=== PATIENT | female | born 1995 | race Two or more races ===

== ENCOUNTER 2017-12-17 15:59 | Outpatient (CLI) | payer BC ==
--- NOTE | 2017-12-18 09:32 | XRAY Report ---
SACRUM AND COCCYX: 12/17/2017 CLINICAL INDICATION: Coccygeal pain. FINDINGS: AP, oblique, lateral views of the sacrum and coccyx demonstrate no evidence of fracture. The sacral ala are preserved. The coccygeal segments demonstrate normal alignment. IMPRESSION: NORMAL SACRUM AND COCCYX. TD: 12/18/2017 09:18
== END 2017-12-17 16:00 | disposition home or self-care (01) ==
LOC: DI.N 15:59
PROVIDERS: ATTEND Family Medicine
DX: M53.3 Sacrococcygeal disorders, not elsewhere classified (principal)
CPT/HCPCS: 72220

== ENCOUNTER 2022-09-10 09:27 | Outpatient (CLI) | payer OTHER ==
[2022-09-10 11:59] LABS: RHEUMATOID FACTOR NEGATIVE (Negative)
--- NOTE | 2022-09-10 15:14 | XRAY Report ---
PROCEDURE: Chest 2 View X-Ray INDICATIONS: UNSPECIFIED IRIDOCYCLITIS TECHNIQUE: 2 views of the chest were acquired. COMPARISON: None. FINDINGS: Surgical changes and devices: None. Lungs and pleura: No pleural effusions or pneumothorax. Lungs are clear. Mediastinum: Mediastinal contours are normal. Heart size is normal. Bones and chest wall: No suspicious bony abnormalities. Soft tissues appear unremarkable. IMPRESSION: Normal chest x-ray Reviewed by: Tristan Moreno MD on 09/10/2022 2:12 PM [facility] Approved by: Tristan Moreno MD on 09/10/2022 2:12 PM [place] Station ID: [id number]
[2022-09-11 07:10] LABS: RPR Non Reactive (Non Reactive)
[2022-09-11 21:07] LABS: ANTI-DNA (DS) AB QN 2 IU/mL (0-9); CENTROMERE B ANTIBODIES <0.2 AI (0.0-0.9); CHROMATIN ANTIBODIES <0.2 AI (0.0-0.9); JO-1 AB <0.2 AI (0.0-0.9); RIBOSOMAL P ANTIBODIES <0.2 AI (0.0-0.9); RNP ANTIBODIES 0.2 AI (0.0-0.9); SCLERODERMA-70 ANTIBODIES <0.2 AI (0.0-0.9); SJOGREN'S ANTI-SS-A <0.2 AI (0.0-0.9); SJOGREN'S ANTI-SS-B <0.2 AI (0.0-0.9); SMITH ANTIBODIES <0.2 AI (0.0-0.9); SMITH/RNP ANTIBODIES <0.2 AI (0.0-0.9)
== END 2022-09-10 09:28 | disposition home or self-care (01) ==
LOC: LAB 09:27
PROVIDERS: ATTEND Ophthalmology
DX: H20.9 Unspecified iridocyclitis (principal)
CPT/HCPCS: 81374; 81599; 83516; 85549; 86225; 86235; 86430; 86592

== ENCOUNTER 2023-02-22 13:18 | Outpatient (CLI) | payer OTHER ==
[~2023-02-22 13:18] MED LIST: GADOBUTROL 7.5 MMOL/7.5 ML VIAL ONE
[2023-02-22] MEDS ORDERED: GADOBUTROL 7.5 MMOL/7.5 ML VIAL IVP ONE (15:00)
--- NOTE | 2023-02-24 08:33 | MRI Report ---
PROCEDURE: BRAIN W/WO INDICATIONS: HEADACHE CONTRAST: GADAVIST 5.9 ML TECHNIQUE: Noncontrast axial T1 spin echo, axial T2 fast spin echo, sagittal and axial FLAIR, coronal T2 fast sp in echo, axial gradient echo, axial diffusion and ADC through the brain. After the administration of contrast, axial and coronal T1 spin echo with fat saturation through the brain. COMPARISON: None. FINDINGS: Image quality: Excellent. CSF spaces: Basal cisterns are patent. No extra-axial fluid collections. Ventricles are normal in size and shape. Brain: No midline shift. No intracranial bleeds or masses. No abnormal intracranial enhancement. There is cerebral volume loss for age. There is periventricular white matter chronic small vessel is chemic change. The brainstem appears normal. Diffusion-weighted images demonstrate no acute ischemi c insults. No chronic ischemic insults. Normal intravascular flow voids are present. Skull and face: Calvarial marrow is normal in signal. Orbits appear normal. Sinuses: Sinuses demonstrate minimal scattered mucosal thickening without fluid levels. IMPRESSION: 1. No acute intracranial process. Reviewed by: Marely Warner MD on 02/24/2023 8:31 AM PDT Approved by: Marely Warner MD on 02/24/2023 8:31 AM PDT Station ID: [id number]
== END 2023-02-22 13:19 | disposition home or self-care (01) ==
LOC: DI 13:18
PROVIDERS: ATTEND Physician Assistant
DX: R51.9 Headache, unspecified (principal); R42 Dizziness and giddiness; R11.2 Nausea with vomiting, unspecified; H93.12 Tinnitus, left ear
CPT/HCPCS: 70553; A9585

== ENCOUNTER 2023-08-05 16:37 | Outpatient (CLI) | payer OTHER ==
[2023-08-06 05:14] LABS: RPR Non Reactive (Non Reactive)
[2023-08-06 17:08] LABS: ANTI-DNA (DS) AB QN 1 IU/mL (0-9); CENTROMERE B ANTIBODIES <0.2 AI (0.0-0.9); CHROMATIN ANTIBODIES <0.2 AI (0.0-0.9); JO-1 AB <0.2 AI (0.0-0.9); RIBOSOMAL P ANTIBODIES <0.2 AI (0.0-0.9); RNP ANTIBODIES <0.2 AI (0.0-0.9); SCLERODERMA-70 ANTIBODIES <0.2 AI (0.0-0.9); SJOGREN'S ANTI-SS-A <0.2 AI (0.0-0.9); SJOGREN'S ANTI-SS-B <0.2 AI (0.0-0.9); SMITH ANTIBODIES <0.2 AI (0.0-0.9); SMITH/RNP ANTIBODIES <0.2 AI (0.0-0.9)
== END 2023-08-05 16:38 | disposition home or self-care (01) ==
LOC: LAB 16:37
PROVIDERS: ATTEND Optometrist
DX: H20.9 Unspecified iridocyclitis (principal)
CPT/HCPCS: 36415; 81374; 81599; 85549; 86225; 86235; 86431; 86592

== ENCOUNTER 2024-03-17 16:05 | Outpatient (CLI) | payer OTHER ==
--- NOTE | 2024-03-19 12:38 | Ultrasound Report ---
PROCEDURE: OB Anatomy Scan INDICATIONS: SUPERVISION OF OUTSIDE/PRIOR DATING DATA: Last menstrual period (LMP): 4- 24. LMP-based estimated date of delivery (MELANY): 08/03/2024. First dating scan (date and location): 12/23/2023. Estimated date of delivery (MELANY) from first dating scan: 08/03/2024. The below data below was generated using the working MELANY of 08/03/2024 TECHNIQUE: Ultrasound of the gravid uterus was performed and recorded. COMPARISON: None. FINDINGS: General: A single live intrauterine gestation is present. Presentation: Variable Placenta: Placental position is anterior without previa. Amniotic fluid index: 13.3 cm, 38.8% for gestational age. heart rate: 155 beats per minute. Maternal cervical canal: 5.4 cm long; normal length is 2.5 cm or more. biometrics: Biparietal diameter: 4.9 cm, 20 week 6 day, 70% Head circumference: 17.9 cm, 20 week 3 day, 53% Abdominal circumference: 15.8 cm, 21 week 0 day, 72% Femur length: 2.9 cm, 19 week 1 day, 12.6% Estimated gestational age by working dates: 20 week 1 day Composite gestational age by current ultrasound: 20 week 1 day Estimated weight and percentile: 338 g, 40.9% Measurement variability in biometric dating: +/- 10 days from 12-20 weeks gestation, +/- 2 weeks from 20-30 weeks gestation, +/- 3 weeks at 30 weeks gestation or more. Anatomic survey: Neuro: Ventricles are non-dilated at less than 10 mm. Cisterna magna is normal at 3-11 mm. Cerebel lum is normal in size and morphology. Nuchal skin fold: Normal at less than 6 mm between 14-20 weeks gestational age. Face: Nose and lips, facial profile are normal. Spine: No evidence for spina bifida. Heart: 4-chambered heart is present, with normal ventricular outflow tracts. Diaphragm: Diaphragm is intact. Stomach: Left-sided stomach is present. Kidneys: No hydronephrosis. Normal is less than 5 mm in 2nd trimester, less than 7 mm in 3rd trimester. Cord: 3-vessel cord. Placental cord insertion of visualized Bladder: Normal in size. Extremities: All 4 extremities identified. Other: Not applicable. IMPRESSION: Single live intrauterine consistent with 20 week 1 day gestation by current ultrasound Placental cord insertion not well visualized. Attention on follow-up Reviewed by: Tristan Moreno MD on 03/19/2024 11:36 AM [facility] Approved by: Tristan Moreno MD on 03/19/2024 11:36 AM [facility] Station ID: [id number]
== END 2024-03-17 16:06 | disposition home or self-care (01) ==
LOC: DI 16:05
PROVIDERS: ATTEND Nurse Practitioner Obstetrics & Gynecology
DX: Z34.02 Encounter for supervision of normal first pregnancy, second trimester (principal); Z36.89 Encounter for other specified antenatal screening

== ENCOUNTER 2024-04-15 10:37 | Outpatient (CLI) | payer OTHER ==
[2024-04-15 11:03] VITALS: O2SAT 98
[2024-04-15 11:27] VITALS: BP 114/67
--- NOTE | 2024-04-15 12:13 | PROVIDER PROGRESS NOTE ---
- HPI Chief Complaint: Fall Current : Vital Signs Temperature 36.7 C 04/15/24 11:01 Heart Rate 80 04/15/24 11:01 Respiratory Rate 17 04/15/24 11:01 O2 Saturation 98 04/15/24 11:01 Temperature 36.7 C 04/15/24 11:05 Heart Rate 80 04/15/24 11:01 Respiratory Rate 17 04/15/24 11:01 Blood Pressure 114/67 04/15/24 11:21 O2 Saturation 98 04/15/24 11:01 If not protocol: Oxygen Flow, liters/minute - Procedures OB Procedure Performed: NST Diagnosis/Indication for NST: Other NST Procedure: NST reassuring. FHR baseline 145, moderate variability, no decelerations No contractions appreciated via tocometry Procedure Details: Mary Ann is a 28yo @ 24wks gestation who presents to [facility] with concerns for a fall. She states she was carrying her 2 year old and tripped over a curb and fell. She states she is not entirely sure where she took the brunt of the fall but does have a scuffed right knee and a sore hand. She states her entire body initially felt tense due to the fall and the associated adrenaline. She does not feel like she hit her stomach and she denies contractions. Her son's head hit the pavement and her initial concern was for him. She denies vaginal bleeding or leakage of fluid. She reports +FM. (See NST note) Vital signs WNL. Limited ultrasound reveals normal anterior placenta with no evidence of abruption. FARHANA WNL. Assessment: 28yo @ 24.2 wks gestation Fall, initial evaluation Plan: Pt reassured. Released home with precautions. Pt has emergency contact information. Return for routine visit as scheduled or sooner PRN. FINAL DIAGNOSIS: Fall, initiation evaluation in <37wks gestation
--- NOTE | 2024-04-15 12:48 | Ultrasound Report ---
PROCEDURE: OB Limited INDICATIONS: Fall OUTSIDE/PRIOR DATING DATA: Last menstrual period (LMP): 10/28/2023 LMP-based estimated date of delivery (MELANY): 08/03/2024. First dating scan (date and location): 12/23/2023. Estimated date of delivery (MELANY) from first dating scan: 08/03/2024. The below data below was generated using the working MELANY of 08/03/2024 TECHNIQUE: Real-time scanning was performed of the fetus, with image documentation. Endovaginal scanning: Not performed COMPARISON: 03/17/2024. FINDINGS: A single living intrauterine gestation is present. Presentation: Vertex Placenta: Placental position is anterior, without previa. Amniotic fluid index: 12.2 cm, 20% for gestational age. heart rate: 169 beats per minutes. Maternal cervical canal: 4.1 cm long; normal length is 2.5 cm or more. Estimated gestational age from initial scan: 24 weeks, 2 days. IMPRESSION: Single live intrauterine gestation with fetus in vertex presentation. heart rate is 169 bpm. No rmal amount of amniotic fluid. FARAHNA is 12.2 cm. Cervix is closed and measures 4.1 cm in length. Placenta location is anterior. No evidence of placenta previa or abruption. Reviewed by: Howard Martines MD on 04/15/2024 12:46 PM PDT Approved by: Howard Martines MD on 04/15/2024 12:46 PM PDT Station ID: [id number]
== END 2024-04-15 11:45 | disposition home or self-care (01) ==
LOC: WFO 10:37 → FBP 10:49 → WFO 11:45
PROVIDERS: ATTEND Nurse Practitioner Obstetrics & Gynecology
DX: O9A.212 Injury, poisoning and certain other consequences of external causes complicating pregnancy, second trimester (principal); S80.911A Unspecified superficial injury of right knee, initial encounter; M79.643 Pain in unspecified hand; Z3A.24 24 weeks gestation of pregnancy; W01.0XXA Fall on same level from slipping, tripping and stumbling without subsequent striking against object, initial encounter; Y92.009 Unspecified place in unspecified non-institutional (private) residence as the place of occurrence of the external cause
CPT/HCPCS: 99213; 99215

== ENCOUNTER 2024-07-27 05:24 | Inpatient (IN) ==
[2024-07-27] MEDS ORDERED: LACTATED RINGERS 1,000 ML IV SCH ×3 (06:00→08:00)
[2024-07-27 06:08] LABS: BASOPHILS % (AUTO) 0.3 %; EOSINOPHILS # (AUTO) 0.1 10^3/uL (0.0-0.7); HCT - HEMATOCRIT 32.8 % (37.0-47.0); HGB - HEMOGLOBIN 10.8 g/dL (12.0-16.0); LYMPHOCYTES # (AUTO) 1.8 10^3/uL (1.5-3.5); LYMPHOCYTES % (AUTO) 19.1 %; MEAN CORPUSCULAR HEMOGLOBIN 30.5 pg (27.0-31.0); MEAN CORPUSCULAR HGB CONC 32.9 g/dL (32.0-36.0); MEAN CORPUSCULAR VOLUME 92.7 fL (81.0-99.0); MEAN PLATELET VOLUME 12.6 fL (7.9-10.8); MONOCYTES # (AUTO) 0.8 10^3/uL (0.0-1.0); MONOCYTES % (AUTO) 8.3 %; NEUTROPHILS # (AUTO) 6.8 10^3/uL (1.5-6.6); NEUTROPHILS % (AUTO) 70.3 %; PLT - PLATELET COUNT 141 10^3/uL (130-450); RED BLOOD COUNT 3.54 10^6/uL (4.20-5.40); RED CELL DISTRIBUTION WIDTH 14.1 % (12.0-15.0); WHITE BLOOD COUNT 9.6 x10^3/uL (4.8-10.8)
[2024-07-27] MEDS: ACETAMINOPHEN 500 MG TABLET PO ONE (06:25)
--- NOTE | 2024-07-27 06:42 | HISTORY & PHYSICAL EXAMINATION ---
Admit History Smoking Status: Never smoker Other Maternal History Other Maternal History: HPI: Patient is a 29-year-old -0-0-2 at 39 weeks 0 days gestation presented today for repeat section. No changes since our last visit. She has good movement. Denies loss of fluid. No WALTER/BV or RUQP. No vaginal bleeding. Denies nausea and vomiting. Denies urinary urgency or dysuria. All other symptoms reviewed and were negative except per HPI. Course LMP: 10/28/2023 MELANY by LMP: 08/03/2024 US: 12/23/2023 @ 8.0wks c/w LMP dating (MELANY by U/S 08/03/2024) Final MELANY: 08/03/2024 Blood type: AB+ Antibody: negative CBC: PLT- 201 HCT-35.1 HGB-11.8 RUB: immune VZV: immune HBsAg: negative HepC: negative RPR/AB-EIA: non-reactive HIV: negative PAP: desires GC/CT: neg HSV: denies Genetic testing: NIPT - negative Covid: x 1, declines booster Flu: declines FAS: 03/17/2024 Placenta: Anterior Cord: 3VC FARHANA: 13.3cm EFW: 338g; 40.9%tile 50gm OGCT: 146 3HR GTT: 05/11-passed TDAP: 06/04/2024 Breast Pump: 3rd trimester Hgb 10.4, Hct 34.5 PLT 173 3rd trimester RPR GBS: 07/09 Delivery plan: repeat with Dr. Darby MOD: Repeat with Dr. Darby HPI Current : Current Para 2 Vital Signs Temperature 36.7 C 07/27/24 06:10 Pulse Rate 80 07/27/24 06:10 Respiratory Rate 16 07/27/24 06:10 Blood Pressure 116/74 07/27/24 06:10 NST Procedure NST Procedure: NST Procedure Start Date 07/27/24 Start Time 05:40 Stop Time 06:10 Patient States Movement Yes Meds/Allgy Home Medications Ambulatory Orders Medication Instructions Recorded Confirmed Lactobac 51-Bifidobac cap PO 05/07/24 07/22/24 3-L.lactis-S.thermophilus 4 billion cell capsule (Daily Probiotic (10 Strains)) ferrous sulfate 325 mg (65 mg 325 mg PO BID #60 tabs 05/07/24 07/22/24 iron) tablet vits 75-iron 28 mg-folic pkg PO 05/07/24 07/22/24 acid 800 mcg-omega-3 oral combo pack (One A Day Women's DHA) Allergies Allergies Allergy/AdvReac Type Severity Reaction Status Date / Time No Known Drug Allergies Allergy Verified 07/22/24 10:35 [facility] Medical History Medical History (Updated 07/27/24 @ 07:28 by Evens Darby MD) Encounter for screening for Streptococcus B Anemia Axillary lymphadenopathy benign bilateral in 2020 Adopted Vitiligo Raynaud disease Surgical History Surgical History (Updated 05/07/24 @ 14:59 by Dionne Daly LPN) Hx of wisdom tooth extraction Hx of section Family History Family History (Updated 05/07/24 @ 14:55 by Dionne Daly LPN) Mother Alcohol abuse Father CAD (coronary artery disease) Social History Social History (Updated 05/07/24 @ 15:00 by Dionne Daly LPN) Smoking Status: Never smoker Do you dip or chew tobacco?: No Do you vape?: No Patient requests smoking cessation consult: No Initiate information on smoking cessation: No Physical Abdominal Exam Vital Signs: Temp Pulse Resp BP 36.7 C 80 16 116/74 07/27/24 06:10 07/27/24 06:10 07/27/24 06:10 07/27/24 06:10 Other Notes Labor Progress Note/Additional Text: Physical exam: General: Alert, oriented, no acute distress Head: Normal cephalic atraumatic Eyes: PERRLA, extraocular motions intact. Respiratory: Normal rate of respiration. No accessory muscle use, normal respiratory effort. Cardiovascular: Regular rate and rhythm Abdomen: Gravid, nontender, nondistended Extremities: Normal range of motion Neuro: Oriented x3. Normal movements Psych: Appropriate mood and affect. Normal judgment and insight FHT: 125 bpm baseline, moderate, accelerations present, no decelerations. Reactive NST [place]: Quiescent Plan for Labor Plan For Labor I expect patient to be DC'd or transferred within 96 hours.: Yes Conclusion/Plan Problem List (1) Maternal care for scar from previous delivery: Plan: -Admit for repeat low-transverse section -Mentality, asthma labs, spinal for surgical anesthesia. TAP block after procedure. 2 g cefazolin for surgical prophylaxis. - section was recommended. Risks, benefits and alternatives were discussed including but not limited to infection, bleeding that may require blood products or hysterectomy for life saving measures, injury to surrounding organs including but not limited to bowel, bladder, ureters, tubes and ovaries and/or the baby. Should injury occur it could require longer/additional surgery to repair. The patient stated understanding and desired to proceed. All questions were answered posed by patient. Qualifiers: Previous scar type: low transverse Qualified Code(s): O34.211 - Maternal care for low transverse scar from previous delivery (2) Supervision of normal intrauterine in multigravida: Qualifiers: Trimester: third trimester Qualified Code(s): Z34.83 - Encounter for supervision of other normal , third trimester (3) 39 weeks gestation of : Lab Results 07/27/24 05:52
[2024-07-27] MEDS ORDERED: OXYTOCIN/SODIUM CHLORIDE 500 ML IV ONE (06:47)
[2024-07-27] MEDS ORDERED: fentaNYL 100 MCG/2 ML VIAL ONE (06:50)
[2024-07-27] MEDS ORDERED: ePHEDrine 50 MG/ML VIAL IVP ONE ×2 (06:51→12:55)
[2024-07-27] MEDS ORDERED: SODIUM CHLORIDE 0.9% 10 ML VIAL IVP ONE ×2 (06:51→12:55)
--- NOTE | 2024-07-27 07:07 | ANESTHESIA PROCEDURE NOTE ---
Pre-Anesthesia VS, & Labs Diagnosis Surgical Diagnosis:: PREVIOUS C/S Procedure Procedure: repeat c/s Vitals Vital Signs: Temp Pulse Resp BP 36.7 C 80 16 116/74 07/27/24 06:10 07/27/24 06:10 07/27/24 06:10 07/27/24 06:10 NPO NPO: >8 hours Is Patient ?: Yes Lab Results Current Lab Results: Laboratory Tests 07/27/24 05:52: WBC 9.6, RBC 3.54 L, Hgb 10.8 L, Hct 32.8 L, MCV 92.7, MCH 30.5, MCHC 32.9, RDW 14.1, Plt Count 141, MPV 12.6 H, Neut # (Auto) 6.8 H, Lymph # (Auto) 1.8, [place] # (Auto) 0.8, Eos # (Auto) 0.1, Baso # (Auto) 0.0, Absolute Nucleated RBC 0.00, Nucleated RBC % 0.0 Lab results reviewed: Yes 07/27/24 05:52 Meds/Allgy Home Medications Ambulatory Orders Medication Instructions Recorded Confirmed Lactobac 51-Bifidobac cap PO 05/07/24 07/22/24 3-L.lactis-S.thermophilus 4 billion cell capsule (Daily Probiotic (10 Strains)) ferrous sulfate 325 mg (65 mg 325 mg PO BID #60 tabs 05/07/24 07/22/24 iron) tablet vits 75-iron 28 mg-folic pkg PO 05/07/24 07/22/24 acid 800 mcg-omega-3 oral combo pack (One A Day Women's DHA) Allergies Allergies Allergy/AdvReac Type Severity Reaction Status Date / Time No Known Drug Allergies Allergy Verified 07/22/24 10:35 [facility] Medical History Medical History (Updated 07/09/24 @ 13:14 by Opal Lagunas MA) Anemia Axillary lymphadenopathy benign bilateral in 2020 Adopted Vitiligo Raynaud disease Surgical History Surgical History (Updated 05/07/24 @ 14:59 by Dionne Daly LPN) Hx of wisdom tooth extraction Hx of section Family History Family History (Updated 05/07/24 @ 14:55 by Dionne Daly LPN) Mother Alcohol abuse Father CAD (coronary artery disease) Social History Social History (Updated 05/07/24 @ 15:00 by Dionne Daly LPN) Smoking Status: Never smoker Do you dip or chew tobacco?: No Do you vape?: No Patient requests smoking cessation consult: No Initiate information on smoking cessation: No Anesthesia Exam (Expanded) Exam General: Alert, Oriented x3 and Cooperative Dental: WNL Mouth Openin Fingerbreadth Neck Mobility: Normal Mallampati classification: II Thyromental Distance: 4-6 cm Respiratory: Lungs clear and Normal breath sounds Cardiovascular: Regular rate Neurological: Normal gait and Normal speech Mental/Cognitive Status: Alert/Oriented X3 and Normal for patient Plan Plan Anesthesia Type: Spinal and Transverse Abdominis Plane (TAP) Block Regional Block: Per Surgeon's request for Post Op pain control Consent for Procedure(s) Verified and Reviewed: Yes Code Status: Attempt Resuscitation ASA Classification ASA classification: 2-Mild systemic disease Is this case an emergency?: No
[2024-07-27] MEDS ORDERED: MORPHINE 2 MG/ML CARPUJECT IVP PRN (07:08)
[2024-07-27] MEDS ORDERED: ATROPINE ABBOJECT 1 MG/10 ML SYRINGE IVP PRN (07:08)
[2024-07-27] MEDS ORDERED: fentaNYL 100 MCG/2 ML VIAL IVP PRN (07:08)
[2024-07-27] MEDS ORDERED: ePHEDrine 50 MG/ML VIAL IVP PRN (07:08)
[2024-07-27] MEDS ORDERED: HYDROmorphone 0.5 MG/0.5 ML SYRINGE IVP PRN (07:08)
[2024-07-27] MEDS ORDERED: ONDANSETRON 4 MG/2 ML VIAL IVP PRN (07:08)
[2024-07-27] MEDS ORDERED: NALOXONE 0.4 MG/ML VIAL IVP PRN (07:08)
[2024-07-27] MEDS ORDERED: METOCLOPRAMIDE 10 MG/2 ML VIAL IVP PRN (07:08)
[2024-07-27] MEDS: CITRIC ACID/SODIUM CITRATE 15 ML UDC PO ONE (07:19)
[2024-07-27] MEDS: ceFAZolin (2G) 2 GM in SODIUM CHLORIDE 0.9% MINIBAG 100 ML IV ONE (07:48)
[2024-07-27] MEDS ORDERED: PHENYLEPHRINE HCL 0.5 MG/5 ML AMPULE ONE (08:09)
[2024-07-27] MEDS ORDERED: ROPIVACAINE 0.5% PF 20 ML VIAL ONE (08:15)
[2024-07-27] MEDS ORDERED: KETOROLAC 30 MG/ML VIAL ONE (08:53)
[2024-07-27] MEDS ORDERED: ONDANSETRON 4 MG/2 ML VIAL ONE (08:59)
[2024-07-27] MEDS ORDERED: OXYTOCIN/SODIUM CHLORIDE 500 ML IV PRN (09:36)
[2024-07-27] MEDS ORDERED: ONDANSETRON ODT 4 MG TABLET TL PRN (09:36)
--- NOTE | 2024-07-27 09:45 | OPERATIVE REPORT ---
Operative Report General Admit Date: 07/27/24 Procedure Data: Operation Date: 07/27/24 07:30 Proposed Procedures p REPEAT Section(Not Applicable) - Evens Darby MD Actual Procedures p REPEAT Section(Not Applicable) - Evens Darby MD Pre-Op Diagnosis: Previous section Anesthesia Type Spinal Case Staff Anesthesia Provider: Apolinar Chan Assisting Provider: Kylie Wood Case Times Into Recovery: 07/27/24 09:29 Procedure Start: 07/27/24 08:21 Procedure End: 07/27/24 09:16 Time out: 07/27/24 08:19 Pre-Op Diagnosis: 39 weeks gestation, previous low-transverse section Post Op Diagnosis: Status post repeat low-transverse section Procedure Note Estimated Blood Loss (ml): 700 Pathology: None Complications: None Other Other Information/Narrative: Patient was a 29-year-old -0-0-2 at 39 weeks 0 days gestation who presented for repeat low-transverse section. section was recommended. Risks, benefits and alternatives were discussed including but not limited to infection, bleeding that may require blood products or hysterectomy for life saving measures, injury to surrounding organs including but not limited to bowel, bladder, ureters, tubes and ovaries and/or the baby. Should injury occur it could require longer/additional surgery to repair. The patient stated understanding and desired to proceed. All questions were answered posed by patient. Prior to being taken to the OR, 2 grams of cefazolin IV was administered. The patient was taken to the operating room where regional anesthesia was found to be adequate. She was then prepared and draped in the usual sterile fashion in the dorsal supine position with a leftward tilt displacing the uterus. Roth was draining to gravity. SCDs were on bilateral lower extremities. Time out was taken. A pfannenstiel skin incision was then made with the scalpel and carried through to the underlying layer of fascia. The previous scar was removed using combination of sharp and Bovie cautery. The fascia was incised in the midline and the incision extended laterally with the Oconnor scissors. The superior aspect of the facial incision was then grasped with the Ankush clamps, elevated and the underlying rectus muscles dissected off sharply. Attention was then turned to the inferior aspect of this incision which in a similar fashion was grasped, elevated with the Ankush clamps and the rectus muscle dissected off sharply. The rectus muscles were in the midline. The peritoneum identified, grasped with the pick-ups and entered sharply with the Metzenbaum scissors. The peritoneal incision was then extended superiorly and inferiorly with good visualization of the bladder. The bladder blade was inserted. The vesicouterine peritoneum was identified, grasped with the pick-ups, and entered sharply with Metzenbaum scissors. This incision was then extended laterally and the bladder flap created digitally. The bladder blade was reinserted. The lower uterine segment was identified and was NOTED TO BE VERY THIN and incised in a transverse fashion with the scalpel. The uterine incision was then extended bluntly laterally. Artificial rupture of membranes demonstrated clear fluid. The bladder blade was removed. The fetus was in a cephalic presentation. The infants head delivered atraumatically. The anterior shoulders were delivered followed by the posterior shoulders then the remainder of the body. T he infants mouth and nose were bulb suctioned. The umbilical cord was clamped times two and cut. The infant was handed to the pediatric team. The placenta was removed with gentle traction, but membranes we were strongly adhered. The actual placental tissue came off easily. Oxytocin was added to the IV fluid and was allowed to run freely. The uterus was exteriorized and cleared of all clots and debris. The uterine incision was inspected and found to be without any extensions and was repaired with 0 Vicryl in a running, locked fashion. A second imbricating layer was performed. Additional [id number] stitch was needed to make the incision hemostatic. Upon inspection, the repaired hysterotomy was found to be hemostatic. The uterus was firm and returned to the abdomen. The gutters were cleared of all clots and debris. I attempted to repair the muscle with 2-0 Vicryl, but due to the tension, it tore through. After 2 small areas of electrocautery, the muscle layer was examined and found to be hemostatic. The fascia was reapproximated with 0 Vicryl in a running fashion. The skin was closed in a subcuticular fashion with 4-0 Monocryl. The patient tolerated the procedure well. Sponge, lap and needle counts were correct times three. The patient was taken to the recovery room in stable condition. I appreciate the assistance of CARA Joy during this procedure, and the assistance in retraction, visualization, dissection, and overall assistance during the case were instrumental to the patient's wellbeing.
[2024-07-27] MEDS: LACTATED RINGERS 1,000 ML IV SCH (10:37)
[2024-07-27] MEDS: oxyCODONE 5 MG TABLET PO PRN (11:08)
[2024-07-27] MEDS: DOCUSATE SODIUM 100 MG CAPSULE PO SCH (11:15)
[2024-07-27] MEDS ORDERED: PROPOFOL 500 MG/50 ML 500 MG/50 ML VIAL ONE ×2 (11:39→12:44)
[2024-07-27] MEDS ORDERED: LIDOCAINE-MPF 2% 5 ML VIAL ONE (11:39)
[2024-07-27] MEDS ORDERED: MIDAZOLAM 2 MG/2 ML VIAL ONE (11:40)
[2024-07-27] MEDS ORDERED: PROPOFOL 200 MG/20 ML VIAL IVP ONE (12:20)
[2024-07-27] MEDS ORDERED: GLYCOPYRROLATE 1 MG/5 ML VIAL ONE (13:14)
--- NOTE | 2024-07-27 14:37 | PHARMACY PROGRESS NOTE ---
Best Possible Medication History Admit Date and Time: 07/27/24 [id number] Home Medications Medication Instructions Recorded Confirmed Type Lactobac 51-Bifidobac 1 cap PO DAILY 05/07/24 07/27/24 History 3-L.lactis-S.thermophilus 4 billion cell capsule (Daily Probiotic (10 Strains)) ferrous sulfate 325 mg (65 mg 325 mg PO BID #60 tabs 05/07/24 07/27/24 Rx iron) tablet vits 75-iron 28 mg-folic 1 pkg PO DAILY 05/07/24 07/27/24 History acid 800 mcg-omega-3 oral combo pack (One A Day Women's DHA) Processed by: Pharmacy Medications reviewed in ED?: No Medication History completed: Yes Patient Interview: Completed Secondary Source(s): Insurance records [facility] Statement: As the person ultimately responsible for medication therapy, providers are able to order a medication from an existing home medication list in [facility] via the "Reconcile Routine" prior to Confirmation of that medication by field support technician. Such practice is discouraged except when the physician, in their clinical judgment, deems that a medical need exists for a medication without regard to previous use.
[2024-07-27] MEDS: ACETAMINOPHEN 500 MG TABLET PO SCH (14:57)
[2024-07-27] MEDS: KETOROLAC 30 MG/ML VIAL IVP SCH (14:58)
--- NOTE | 2024-07-27 15:22 | ANESTHESIA POST OP EVALUATION ---
Anesthesia Post Eval Post Anesthesia Eval Vitals: Last Vital Signs Temp 36.8 C 07/27/24 11:58 Pulse 92 07/27/24 11:58 Resp 16 07/27/24 11:58 BP 119/64 07/27/24 11:58 Pulse Ox 99 07/27/24 09:55 CV Function Including HR & BP: Stable Pain Control: Satisfactory Nausea & Vomiting: Negative Mental Status: Baseline Respiratory Status: Airway Patent Hydration Status: Satisfactory Anesthesia Complications: None
[2024-07-28 06:00] LABS: BASOPHILS % (AUTO) 0.2 %; EOSINOPHILS # (AUTO) 0.1 10^3/uL (0.0-0.7); EOSINOPHILS % (AUTO) 1.2 %; HCT - HEMATOCRIT 28.2 % (37.0-47.0); HGB - HEMOGLOBIN 9.2 g/dL (12.0-16.0); LYMPHOCYTES # (AUTO) 2.3 10^3/uL (1.5-3.5); LYMPHOCYTES % (AUTO) 23.1 %; MEAN CORPUSCULAR HEMOGLOBIN 30.4 pg (27.0-31.0); MEAN CORPUSCULAR HGB CONC 32.6 g/dL (32.0-36.0); MEAN CORPUSCULAR VOLUME 93.1 fL (81.0-99.0); MEAN PLATELET VOLUME 11.8 fL (7.9-10.8); MONOCYTES # (AUTO) 0.8 10^3/uL (0.0-1.0); MONOCYTES % (AUTO) 8.3 %; NEUTROPHILS # (AUTO) 6.5 10^3/uL (1.5-6.6); NEUTROPHILS % (AUTO) 66.4 %; PLT - PLATELET COUNT 133 10^3/uL (130-450); RED BLOOD COUNT 3.03 10^6/uL (4.20-5.40); RED CELL DISTRIBUTION WIDTH 14.3 % (12.0-15.0); WHITE BLOOD COUNT 9.8 x10^3/uL (4.8-10.8)
[2024-07-28] MEDS: IBUPROFEN 600 MG TABLET PO SCH (09:33)
[2024-07-28] MEDS: SIMETHICONE CHEW 80 MG TABLET PO PRN (09:34)
--- NOTE | 2024-07-28 11:37 | PROVIDER PROGRESS NOTE ---
Subjective Prog Note Date Prog Note Date: 07/28/24 Prog Note Time: 11:29 Subjective Subjective: Mary Ann reports that her headache is worsening this morning. Anesthesia saw her yesterday and discussed a blood patch and she declines, however, she would like to talk to them about it again today. Incisional pain is well controlled with current medications. She is ambulating to the bathroom and has voided spontaneously, wong catheter was removed yesterday.. She is tolerating a normal diet. Lochia reported as normal. She reports she is passing flatus. Current Medications Current Medications Current Medications: Current Medications Generic Name Dose Route Start Last Admin Trade Name Freq PRN Reason Stop Dose Admin Acetaminophen 1,000 mg 07/27/24 12:00 07/28/24 09:33 Acetaminophen 500 Mg Tablet PO 1,000 mg Q6HR BETY Administration Docusate Sodium 100 mg 07/27/24 10:00 07/28/24 09:34 Docusate Sodium 100 Mg Capsule PO 100 mg DAILY BETY Administration Oxytocin/Sodium Chloride 500 mls @ 999 mls/hr 07/27/24 09:36 Pitocin/Sodium Chloride IV PRN PRN POST- HEMORR PREVENTION Protocol 999 MILLIUNIT/MIN Ibuprofen 600 mg 07/28/24 09:30 07/28/24 09:33 Ibuprofen 600 Mg Tablet PO 600 mg Q6H BETY Administration Ondansetron HCl 4 mg 07/27/24 09:36 Ondansetron Odt 4 Mg Tablet TL Q4HR PRN Nausea / Vomiting Oxycodone HCl 5 mg 07/27/24 09:36 07/28/24 01:13 Oxycodone 5 Mg Tablet PO 5 mg Q4HR PRN Administration Moderate Pain (Level 4-6) Simethicone 80 mg 07/27/24 09:36 07/28/24 09:34 Simethicone Chew 80 Mg Tablet PO 80 mg TID PRN Administration Gas Objective Vital Signs/Intake & Output Vital Signs: Vital Signs x48h Temp Pulse Resp BP Pulse Ox 07/28/24 08:45 98.1 F 73 16 103/69 99 07/28/24 04:04 98.1 F 81 16 112/73 98 Intake & Output: Intake & Output 07/25/24 07/26/24 07/27/24 07/28/24 23:59 23:59 23:59 23:59 Intake Total 800 / 800 Output Total 1225 / 1225 Balance -425 / -425 Weight (kg) 175 lb 0.752 oz Objective Eyes Bilateral: positive Other Comments/Other: Gen: NAD, lying in bed Chest: non labored respirations Abd: soft, non tender, fundus firm. Bandage in place is clean and dry. Ext: no evidence of DVT Lab Results 07/28/24 05:42 Other Labs: Lab Results x24hrs 07/28/24 Range/Units 05:42 WBC 9.8 (4.8-10.8) x10^3/uL RBC 3.03 L (4.20-5.40) 10^6/uL Hgb 9.2 L (12.0-16.0) g/dL Hct 28.2 L (37.0-47.0) % MCV 93.1 (81.0-99.0) fL MCH 30.4 (27.0-31.0) pg MCHC 32.6 (32.0-36.0) g/dL RDW 14.3 (12.0-15.0) % Plt Count 133 (130-450) 10^3/uL MPV 11.8 H (7.9-10.8) fL Neut # (Auto) 6.5 (1.5-6.6) 10^3/uL Lymph # (Auto) 2.3 (1.5-3.5) 10^3/uL [place] # (Auto) 0.8 (0.0-1.0) 10^3/uL Eos # (Auto) 0.1 (0.0-0.7) 10^3/uL Baso # (Auto) 0.0 (0.0-0.1) 10^3/uL Absolute Nucleated RBC 0.00 x10^3/uL Nucleated RBC % 0.0 /100WBC Assessment/Plan Problem List (1) care and examination of lactating mother: (2) Status post delivery: (3) Anemia complicating : Qualifiers: Trimester: second trimester Qualified Code(s): O99.012 - Anemia complicating , second trimester (4) Headache after spinal puncture: Impression: - Continue routine postoperative/ care. She will remove bandage when she gets in shower. - She would like to discuss risks/benefits of blood patch again with anesthesia, RN will contact them to see her today - Consider oral Fe on discharge
--- NOTE | 2024-07-28 13:12 | ANESTHESIA PROCEDURE NOTE ---
Diagnosis Diagnosis: PDPH Procedure Procedure: EBP Consent for Procedure(s) Verified and Reviewed: Yes Vitals Height and Weight: Height 5 ft 2 in Body Mass Index 32.3 Vital Signs: Temp Pulse Resp BP Pulse Ox 36.7 C 81 17 120/79 98 07/28/24 12:45 07/28/24 12:45 07/28/24 12:45 07/28/24 12:45 07/28/24 12:45 Allergies Allergies: Allergies No Known Drug Allergies Allergy (Verified 07/22/24 10:35) ASA ASA classification: 2-Mild systemic disease Is this case an emergency?: No Monitoring Anes. Monitoring and Equipment: Non-invasive BP, Pulse oximetery and Sterile prep and drape Anes. Procedure Start Time: 12:10 Anes. Procedure Stop Time: 12:40 Procedure Notes Procedure Notes: Pt c/o PDPH, requesting EBP. Informed consent obtained. Epidural space acquired under sterile technique at L3-L4. 20 cc autologous blood aspirated from sterile new IV by RN. 10cc injected into epidural space and stopped when pt c/o increased pressure at injection site. Pt tolerated well. VSS. Pt positioned supine and will be monitored by RN supine for 30 minutes. Pt educated about post-procedure activity restrictions and care. Pt verbalizes understanding.
[2024-07-28 19:39] VITALS: O2SAT 98
[2024-07-29 07:41] VITALS: TEMP 98.2
--- NOTE | 2024-07-29 09:13 | Discharge Summary ---
Discharge Summary ALLERGIES Allergies Allergy/AdvReac Type Severity Reaction Status Date / Time No Known Drug Allergies Allergy Verified 07/22/24 10:35 MEDICATIONS Ambulatory Orders Medication Instructions Recorded Confirmed Lactobac 51-Bifidobac 1 cap PO DAILY 05/07/24 07/27/24 3-L.lactis-S.thermophilus 4 billion cell capsule (Daily Probiotic (10 Strains)) ferrous sulfate 325 mg (65 mg 325 mg PO BID #60 tabs 05/07/24 07/27/24 iron) tablet vits 75-iron 28 mg-folic 1 pkg PO DAILY 05/07/24 07/27/24 acid 800 mcg-omega-3 oral combo pack (One A Day Women's DHA) acetaminophen 500 mg tablet 1,000 mg (2 x 500 mg) PO Q6HR #60 07/29/24 tabs docusate sodium 100 mg capsule 100 mg PO DAILY #60 caps 07/29/24 ibuprofen 600 mg tablet 600 mg PO Q6H PRN Pain #30 tabs 07/29/24 oxycodone 5 mg tablet 5 mg PO Q4H PRN Severe Pain #20 07/29/24 tabs LABS 07/28/24 05:42 Discharge Plan Discharge Patient Disposition: Home, Self Care Prescriptions: New oxycodone 5 mg tablet 5 mg PO Q4H PRN (Reason: Severe Pain) Qty: 20 0RF acetaminophen 500 mg Tablet 1,000 mg PO Q6HR Qty: 60 0RF docusate sodium 100 mg Capsule 100 mg PO DAILY Qty: 60 0RF ibuprofen 600 mg tablet 600 mg PO Q6H PRN (Reason: Pain) Qty: 30 0RF Continued ferrous sulfate 325 mg (65 mg iron) tablet 325 mg PO BID Qty: 60 0RF One A Day Women's DHA 28 mg iron- 800 mcg combo pack 1 pkg PO DAILY Daily Probiotic (10 Strains) 4 billion cell capsule 1 cap PO DAILY Activity Restrictions: Additional Comments Diet: Regular Print Language: Turkish Patient Instructions: Depression , C Section Dc, ED Headache Post Spinal Tap W Patch
--- NOTE | 2024-07-29 09:17 | Discharge Summary ---
Discharge Summary Admit Date: 07/27/24 Discharge Date: 07/29/24 Discharging Provider: Evens Darby MD Code Status: Attempt Resuscitation DIAGNOSES Admission Diagnoses: 39 weeks gestation Previous low transverse section HPI History of Present Illness: Subjective Patient reports she is doing well, but had significant headache yesterday. Received a blood patch and doing mildly better. Will likely get second blood patch today. Lochia appropriate. Denies heavy bleeding. Ambulating. Pelvic and abdominal pain well-controlled. Tolerating oral intake. Diet: Regular. Voiding without difficulty. Passing flatus. Denies BM. Patient is bonding with baby in room Breast feeding going well. Denies feeling lightheaded, dizzy or excessively fatigued. Objective General: Alert, oriented, no apparent distress. Cardiovascular: Regular rate. Regular rhythm. Lungs: No increased work of breathing. Abdomen: Uterus firm. Below umbilicus. No guarding or rebound. Extremities: No pain on palpation. No cords palpated. Distal pulses intact. Incision: Clean, dry, and intact. HOSPITAL COURSE Hospital Course: Patient was admitted at 39 weeks gestation for repeat low-transverse section. section was uncomplicated with delivery of live ann . course was remarkable for a spinal headache which received 2 blood patches and is feeling better. Sutures remain in place with Steri- Strips. Advised on healing and depression. Plan to follow-up in clinic in 1 to 2 weeks. ALLERGIES Allergies Allergy/AdvReac Type Severity Reaction Status Date / Time No Known Drug Allergies Allergy Verified 07/22/24 10:35 MEDICATIONS Ambulatory Orders Medication Instructions Recorded Confirmed Lactobac 51-Bifidobac 1 cap PO DAILY 05/07/24 07/27/24 3-L.lactis-S.thermophilus 4 billion cell capsule (Daily Probiotic (10 Strains)) ferrous sulfate 325 mg (65 mg 325 mg PO BID #60 tabs 05/07/24 07/27/24 iron) tablet vits 75-iron 28 mg-folic 1 pkg PO DAILY 05/07/24 07/27/24 acid 800 mcg-omega-3 oral combo pack (One A Day Women's DHA) acetaminophen 500 mg tablet 1,000 mg (2 x 500 mg) PO Q6HR #60 07/29/24 tabs docusate sodium 100 mg capsule 100 mg PO DAILY #60 caps 07/29/24 ibuprofen 600 mg tablet 600 mg PO Q6H PRN Pain #30 tabs 07/29/24 oxycodone 5 mg tablet 5 mg PO Q4H PRN Severe Pain #20 07/29/24 tabs LABS 07/28/24 05:42 Discharge Plan Discharge Patient Disposition: Home, Self Care Prescriptions: New ibuprofen 600 mg tablet 600 mg PO Q6H PRN (Reason: Pain) Qty: 30 0RF oxycodone 5 mg tablet 5 mg PO Q4H PRN (Reason: Severe Pain) Qty: 20 0RF acetaminophen 500 mg Tablet 1,000 mg PO Q6HR Qty: 60 0RF docusate sodium 100 mg Capsule 100 mg PO DAILY Qty: 60 0RF Continued ferrous sulfate 325 mg (65 mg iron) tablet 325 mg PO BID Qty: 60 0RF One A Day Women's DHA 28 mg iron- 800 mcg combo pack 1 pkg PO DAILY Daily Probiotic (10 Strains) 4 billion cell capsule 1 cap PO DAILY Activity Restrictions: Additional Comments Diet: Regular Print Language: Albanian Patient Instructions: Depression , C Section Dc, ED Headache Post Spinal Tap W Patch
--- NOTE | 2024-07-29 13:52 | ANESTHESIA PROCEDURE NOTE ---
Vitals Height and Weight: Height 5 ft 2 in Body Mass Index 32.3 Vital Signs: Temp Pulse Resp BP Pulse Ox 36.8 C 80 16 111/68 98 07/29/24 07:40 07/29/24 07:40 07/29/24 03:45 07/29/24 07:40 07/29/24 03:45 Allergies Allergies: Allergies No Known Drug Allergies Allergy (Verified 07/22/24 10:35) Anesthesia Epidural Template Patient Report Patient Reports: positive Other
[2024-07-29 14:07] VITALS: BP 112/78
--- NOTE | 2024-07-29 14:12 | MISCELLANEOUS PROVIDER NOTE ---
Miscellaneous Provider Note - Note: Called as patient still complaining of spinal headache, re-consented and risks explained. Epidural placement sitting with 17g ROBBY with NS at L3-4, blood drawn by me under sterile conditions as RN unable. 20cc injected slowly, patient described some low back ache afterward. No other neurologic c/o's. 30 minutes later stated felt some better but had not been up. One hour later she was up in [place] without headache planning for D/C home. I instructed her to not do heavy lifting and take it easy for a few days. Also that she could take NSAIDS at home for back tenderness. Patient very satisfied with results of second blood patch.
== END 2024-07-29 16:30 | disposition home or self-care (01) | DRG 788 ==
LOC: FBP 05:24
PROVIDERS: ADMIT Obstetrics & Gynecology; ATTEND Obstetrics & Gynecology
DX: N85.8 Other specified noninflammatory disorders of uterus; O34.211 Maternal care for low transverse scar from previous cesarean delivery; Z3A.39 39 weeks gestation of pregnancy; Z37.0 Single live birth; O74.5 Spinal and epidural anesthesia-induced headache during labor and delivery; O99.012 Anemia complicating pregnancy, second trimester